=== PATIENT | male | born 2000 | race Caucasian/White ===

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

== ENCOUNTER 2019-01-08 19:29 | Emergency (ER) | payer SELFPAY ==
[~2019-01-08] VITALS: Ht 172.7 cm; Wt 59.1 kg
[2019-01-08 19:46] VITALS: Ht 172.7 cm; Wt 59.1 kg
[2019-01-08] MEDS ORDERED: CYCLOBENZAPRINE10 MG PO (21:18)
[2019-01-08 22:27] VITALS: BP 119/78
== END 2019-01-08 22:27 | disposition home or self-care (01) ==
LOC: D.ER 19:29
DX: S09.90XA Unspecified injury of head, initial encounter (principal); W51.XXXA Accidental striking against or bumped into by another person, initial encounter; R51 Headache